=== PATIENT | male | born 1955 | race African-American/Black ===

== ENCOUNTER → 2017-04-17 | Outpatient (CLI) | payer OTHER ==
--- NOTE | 2017-04-17 14:15 | RAD ---
AP and lateral views of the Chest 04/17/2017 2:00 AM Indication: SHORTNESS OF AIR. Comparison: Chest radiograph February 07, 2014 Findings: Lucency of the lung apices is similar to comparison study. Findings most commonly reflect COPD. There is also mild hyperinflation and flattening of the hemidiaphragms also support emphysematous change. No new focal infiltrate is seen. No pleural effusion is identified. Heart size is normal. No acute osseous changes are identified. Impression: Grossly stable appearance of the chest including mild hyperinflation and upper lobe predominant lucency suggesting emphysema
== END | disposition home or self-care (01) ==
LOC: RAD 13:43
PROVIDERS: ATTEND Internal Medicine Pulmonary Disease
DX: R91.8 Other nonspecific abnormal finding of lung field (principal); J44.9 Chronic obstructive pulmonary disease, unspecified; J43.9 Emphysema, unspecified
CPT/HCPCS: 71020

== ENCOUNTER 2018-10-30 09:52 | Emergency (ER) | payer OTHER ==
[~2018-10-30] VITALS: Ht 180.3 cm; Wt 63.5 kg
[~2018-10-30 09:52] MED LIST: ALBU2.5V8 INH; AMLO10TA4 PO; ASPI-482 PO; MOME13HF IH; TIOT18CA IH
[2018-10-30 10:39] LABS: BASO # 0.1 x10^3/uL (0.0-0.2); BASO % 1 % (0-3); EOS # 0.1 x10^3/uL (0.0-0.7); EOS % 1 % (0-3); HEMATOCRIT 40.8 % (39.0-53.0); HEMOGLOBIN 13.7 g/dL (13.0-17.5); LYMPH # 1.6 x10^3/uL (1.0-4.8); LYMPH % 23 % (24-48); MEAN CORPUSCULAR HEMOGLOBIN 32 pg (25-35); MEAN CORPUSCULAR HGB CONC 34 g/dL (31-37); MEAN CORPUSCULAR VOLUME 94 fL (79-100); MONO # 0.5 x10^3/uL (0.0-1.1); MONO % 6 % (0-9); NEUT # 4.9 x10^3uL (1.8-7.7); NEUT % 69 % (31-73); PLATELET COUNT 206 x10^3/uL (140-400); RED BLOOD COUNT 4.35 x10^6/uL (4.30-5.70); RED CELL DISTRIBUTION WIDTH 14.3 % (11.5-14.5); WHITE BLOOD COUNT 7.2 x10^3/uL (4.0-11.0)
[2018-10-30 10:47] LABS: BILIRUBIN,URINE NEGATIVE (NEG); CLARITY,URINE CLEAR; NITRITE,URINE NEGATIVE (NEG); PH,URINE 5.5; PROTEIN,URINE NEGATIVE (NEG-TRACE); UROBILINOGEN,URINE 0.2 mg/dL (0.2 mg/dL)
--- NOTE | 2018-10-30 10:54 | PHYS DOC ---
Past Medical History Past Medical History: Bronchitis, CAD, COPD, Diabetes-Type II, Other Additional Past Medical Histor: cardiac stents 2012,EMPHYSEMA Past Surgical History: Angioplasty, Other Additional Past Surgical Histo: cardiac stents, hernia Additional Information: 1 PPD Alcohol Use: Heavy Additional Information: 2 TO 3 TIMES A WEEK, LAST DRINK SATURDAY, OCTOBER 27, 2018 Drug Use: Cocaine, Other Social History Narrative: CRACK COCAINE LAST USED OCTOBER 28, 2018 Adult General Chief Complaint Chief Complaint: OTHER COMPLAINTS HPI HPI Patient is a 63 year old AA male who presents to the ER today with a need for medical clearance so that he can be admitted to [facility] for drug detox. Pt states he is addicted to crack cocaine and last smoked the drug on Friday. Pt reports that he last drank alcohol on Friday10/27/18. He denies any suicidal or homicidal ideations. He denies any chest pain, shortness of breath, diaphoresis, nausea, vomiting, diarrhea, abdominal pain, or fever. Pt reports some chronic mid to upper back pain, denies any acute injury or acute back pain. Currently, he rates his pain a 7/10 on the pain scale. There are no alleviating or exacerbating factors. Review of Systems Review of Systems Constitutional: Denies fever or chills [] Eyes: Denies change in visual acuity, redness, or eye pain [] HENT: Denies nasal congestion or sore throat [] Respiratory: Denies cough or shortness of breath [] Cardiovascular: No additional information not addressed in HPI [] GI: Denies abdominal pain, nausea, vomiting, or diarrhea [] : Denies dysuria Musculoskeletal: See HPI Integument: Denies rash or skin lesions [] Neurologic: Denies headache, focal weakness or sensory changes [] Complete systems were reviewed and found to be within normal limits, except as documented in this note. Allergies Allergies Allergies Coded Allergies Type Severity Reaction Last Updated Verified No Known Drug Allergies 08/15/17 No Physical Exam Physical Exam Constitutional: Well developed, well nourished, no acute distress, non-toxic appearance. [] HENT: Normocephalic, atraumatic, bilateral external ears normal, oropharynx moist, nose normal. [] Eyes: PERRLA, conjunctiva normal, no discharge. [] Neck: Normal range of motion, no stridor. [] Cardiovascular:Heart rate regular rhythm, no murmur [] Lungs & Thorax: Bilateral breath sounds clear to auscultation [] Abdomen: soft, no tenderness, no masses, no pulsatile masses. [] Skin: Warm, dry, no erythema, no rash. [] Back: No bony tenderness, no CVA tenderness. [] Extremities: No cyanosis, no clubbing, ROM intact, no edema. [] Neurologic: Alert and oriented X 3, normal motor function, normal sensory function, no focal deficits noted. [] Psychologic: Affect normal, judgement normal, mood normal. [] Current Patient Data Vital Signs Vital Signs Date Time Temp Pulse Resp B/P (MAP) Pulse Ox O2 Delivery O2 Flow Rate FiO2 10/30/18 10:03 97.2 83 20 178/99 (125) 99 Room Air 97.2 Lab Values Laboratory Tests Test 10/30/18 10:26 10/30/18 10:32 White Blood Count 7.2 x10^3/uL (4.0-11.0) Red Blood Count 4.35 x10^6/uL (4.30-5.70) Hemoglobin 13.7 g/dL (13.0-17.5) Hematocrit 40.8 % (39.0-53.0) Mean Corpuscular Volume 94 fL (79-100) Mean Corpuscular Hemoglobin 32 pg (25-35) Mean Corpuscular Hemoglobin Concent 34 g/dL (31-37) Red Cell Distribution Width 14.3 % (11.5-14.5) Platelet Count 206 x10^3/uL (140-400) Neutrophils (%) (Auto) 69 % (31-73) Lymphocytes (%) (Auto) 23 % (24-48) L Monocytes (%) (Auto) 6 % (0-9) Eosinophils (%) (Auto) 1 % (0-3) Basophils (%) (Auto) 1 % (0-3) Neutrophils # (Auto) 4.9 x10^3uL (1.8-7.7) Lymphocytes # (Auto) 1.6 x10^3/uL (1.0-4.8) Monocytes # (Auto) 0.5 x10^3/uL (0.0-1.1) Eosinophils # (Auto) 0.1 x10^3/uL (0.0-0.7) Basophils # (Auto) 0.1 x10^3/uL (0.0-0.2) Troponin I Quantitative < 0.017 ng/mL (0.000-0.055) Salicylates Level < 2.8 mg/dL (2.8-20.0) L Salicylate Last Dose Date Unknown Salicylate Last Dose Time Unknown Ethyl Alcohol Level < 10 mg/dL (0-10) Urine Collection Type Void Urine Color Colorless Urine Clarity Clear Urine pH 5.5 Urine Specific [place] 1.010 Urine Protein Negative mg/dL (NEG-TRACE) Urine Glucose (UA) Negative mg/dL (NEG) Urine Ketones (Stick) Negative mg/dL (NEG) Urine Blood Negative (NEG) Urine Nitrite Negative (NEG) Urine Bilirubin Negative (NEG) Urine Urobilinogen Dipstick 0.2 mg/dL (0.2 mg/dL) Urine Leukocyte Esterase Negative (NEG) Urine RBC Rare /HPF (0-2) Urine WBC Occ /HPF (0-4) Urine Squamous Epithelial Cells None /LPF Urine Bacteria Few /HPF (0-FEW) Urine Opiates Screen Neg (NEG) Urine Methadone Screen Neg (NEG) Urine Barbiturates Neg (NEG) Urine Phencyclidine Screen Neg (NEG) Urine Amphetamine/Methamphetamine Neg (NEG) Urine Benzodiazepines Screen Neg (NEG) Urine Cocaine Screen Pos (NEG) Urine Cannabinoids Screen Neg (NEG) Urine Ethyl Alcohol Neg (NEG) Laboratory Tests 10/30/18 10:26 EKG EKG 1038- NSR, no STEMI, ST segment congruent other than repolarization abnormality isolated to V3, rate 71, read by Dr. Carrillo[] Radiology/Procedures Radiology/Procedures [] Course & Med Decision Making Course & Med Decision Making Pertinent Labs and Imaging studies reviewed. (See chart for details) Dx: crack cocaine addiction, medical clearance Luiz LE asset administrator came to assess patient. Pt is not suicidal or homicidal, his insurance is not accepted for in patient treatment at [facility]. Pt was informed by Luiz to follow up with his therapist at [facility] for further treatment of drug addiction. [] Madyson Disclaimer Madyson Disclaimer This electronic medical record was generated, in whole or in part, using a voice recognition dictation system. Departure Departure Impression: Primary Impression: Medical clearance for psychiatric admission Additional Impression: Crack cocaine use Disposition: HOME, SELF-CARE Condition: STABLE Referrals: CORY FARLEY MD (PCP) Patient Instructions: Cocaine Abuse-Brief Additional Instructions: Follow up with your therapist at [facility], your porter sample case is Cristhian Norman. Contact [facility] for substance abuse treatment. Return to the ER if symptoms worsen. Problem Qualifiers COMPA LACEY APRN Oct 30, 2018 10:54
[2018-10-30 10:55] LABS: BARBITURATES NEG (NEG); BENZODIAZEPINES NEG (NEG); CANNABINOIDS NEG (NEG); COCAINE POS (NEG); METHADONE NEG (NEG); OPIATES NEG (NEG); PHENCYCLIDINE NEG (NEG)
[2018-10-30 10:56] LABS: AMPHETAMINE/METHAMPHETAMINE NEG (NEG)
[2018-10-30 10:57] LABS: ETHANOL < 10 mg/dL (0-10); SALIC < 2.8 mg/dL (2.8-20.0)
[2018-10-30 10:58] LABS: BACTERIA,URINE FEW /HPF (0-FEW); COLOR,URINE COLORLESS; RBC,URINE RARE /HPF (0-2); WBC,URINE OCC /HPF (0-4)
--- NOTE | 2018-10-30 11:29 | EKG ---
[facility] [address] [place] [address] Test Date: 2018-10-30 Test Time: 10:38:22 Pat Name: VIVEK BAILEY Department: Room: Gender: M Cloth Shearer: : 1955 Requested By: COMPA LACEY Order Number: [id number] Reading MD: Harpreet Skelton MD Measurements Intervals [place] Rate: 71 P: 90 WI: 170 QRS: 72 QRSD: 78 T: 75 QT: 400 QTc: 440 Interpretive Statements SINUS RHYTHM Electronically Signed On 10-30-2018 17:33:38 CDT by Harpreet Skelton MD
[2018-10-30 11:42] VITALS: BP 170/100
== END 2018-10-30 12:11 | disposition home or self-care (01) ==
LOC: ER 09:52
DX: F14.20 Cocaine dependence, uncomplicated (principal); Z01.810 Encounter for preprocedural cardiovascular examination; G89.29 Other chronic pain; M54.6 Pain in thoracic spine; E11.9 Type 2 diabetes mellitus without complications; J43.9 Emphysema, unspecified; Z95.5 Presence of coronary angioplasty implant and graft; I25.10 Atherosclerotic heart disease of native coronary artery without angina pectoris; F17.200 Nicotine dependence, unspecified, uncomplicated; F10.20 Alcohol dependence, uncomplicated; Y90.9 Presence of alcohol in blood, level not specified
CPT/HCPCS: 36415; 80307; 80329; 81001; 84484; 85025; 93005; 99284; G0480